=== PATIENT | female | born 1965 | race Caucasian/White ===

== ENCOUNTER 2019-11-04 09:08 | Emergency (ER) | payer OTHER, SELFPAY ==
[2019-11-04 09:27] VITALS: BP 146/89; PULSE 91; RESP 20; TEMP 36.2; O2SAT 99
--- NOTE | 2019-11-04 09:40 | ED.GENADULT ---
HPI - General Adult General Chief complaint: Eye Problems Stated complaint: Eyhe problems Time Seen by Provider: 11/04/19 09:40 Source: patient Mode of arrival: ambulatory Limitations: no limitations History of Present Illness HPI narrative: 54-year-old female patient presents to the [facility] with complaints of right eyelid swelling that started yesterday. Patient states that she put a warm compress on it all night last night but noticed that today the redness and swelling to the eye is gotten worse. Patient states that she typically does wear eye make-up. Patient denies any fevers. Denies any vision changes. Denies any discharge coming from the eye. Related Data Home Medications Medication Instructions Recorded Confirmed No Home Medications 11/04/19 11/04/19 Allergies Allergy/AdvReac Type Severity Reaction Status Date / Time prochlorperazine Allergy Mild Verified 07/05/16 09:22 Review of Systems Review of Systems: Narrative: CONSTITUTIONAL: Denies fever, chills, or sweats. EYES: Denies visual changes, positive right eye upper lid redness and swelling, denies discharge. ENT: Denies rhinorrhea, congestion, sore throat, or otalgia. CARDIOVASCULAR: Denies chest pain, palpitations, or edema. RESPIRATORY: Denies cough or dyspnea. GASTROINTESTINAL: Denies abdominal pain, nausea, vomiting, or diarrhea. GENITOURINARY: Denies dysuria or hematuria. SKIN: Denies rash or itching. MUSCULOSKELETAL: Denies back pain, joint pain, or myalgia. NEUROLOGIC: Denies headache, numbness, or weakness. PSYCHIATRIC: Denies anxiety or depression. PMFSH Social History Social History Gender identity (if verbalized by the patient): Female Comments At the time of my signature I agree with nursing past medical history, surgical, social, and family history. There is no relevant family history pertinent to the presenting complaint. Exam Narrative: Exam Narrative: GENERAL: Well-appearing, well-nourished, and in no acute distress. HEAD: Normocephalic, atraumatic. EYES: PERRLA and EOM intact without limitation or complaint of pain, patient does have swelling and erythema noted to the right upper lid. No warmth, slight tenderness noted on palpation towards the inner canthus, no obvious deformity. No crusting or swelling.no tearing or draining.No photophobia. No nystagmus No FB or lesion on lid eversion. There is a stye noted on lid inversion to your inner canthus Antis on the inner upper lid. Corneas grossly clear, no obvious FB or hyphens/hypopyon. No injection to sclera. Lids and lashes clear. ENT: Nares clear, no rhinorrhea or epistaxis. Mucous membranes moist. NECK: Supple. No lymphadenopathy CHEST: Clear to auscultation. No respiratory distress. HEART: Regular rate and rhythm. No murmur heard. Normal peripheral pulses. ABDOMEN: Soft, nontender, nondistended, normal active bowel sounds. EXTREMITIES: Normal range of motion. No edema. SKIN: Warm, dry, no rash. NEURO: No focal deficits. Alert and oriented x3. Course Vital Signs Vital signs: Vital Signs Temperature 36.2 C L 11/04/19 09:27 Pulse Rate 91 11/04/19 09:27 Respiratory Rate 20 11/04/19 09:27 Blood Pressure 146/89 H 11/04/19 09:27 Pulse Oximetry 99 11/04/19 09:27 Temperature 36.2 C L 11/04/19 09:27 Pulse Rate 91 11/04/19 09:27 Respiratory Rate 20 11/04/19 09:27 Blood Pressure 146/89 H 11/04/19 09:27 Pulse Oximetry 99 11/04/19 09:27 Vital signs reviewed. The patient has been informed that they may have pre-hypertension or Hypertension based on a BP reading in the department. I recommend that the patient call the primary care provider listed on their discharge instructions or a physician of their choice this week to arrange follow up for further evaluation of possible pre-hypertension or Hypertension Medical Decision Making Differential Diagnosis Differential Diagnosis: Differential diagnosi
== END 2019-11-04 09:47 | disposition home or self-care (01) ==
PROVIDERS: Emergency Provider Nurse Practitioner Family
DX: H00.021 Hordeolum internum right upper eyelid (principal)
CPT/HCPCS: 99213; G0463

== ENCOUNTER 2021-03-24 04:41 | Emergency (ER) | payer OTHER, SELFPAY ==
[2021-03-24 04:46] VITALS: BP 175/83; PULSE 107; RESP 17; TEMP 36; O2SAT 100
--- NOTE | 2021-03-24 05:00 | ED.ALLEREA ---
HPI - Allergic Reaction General Chief complaint: Allergic Reaction Stated complaint: Tongue swelling Time Seen by Provider: 03/24/21 04:51 Source: patient and RN notes reviewed Limitations: no limitations History of Present Illness HPI narrative: 55-year-old female presents [facility] for evaluation of tongue swelling that started approximately 30 minutes prior to arrival. Patient states she was asleep when she woke up and felt that the right side of her tongue was swollen. Patient presented to the emergency department for evaluation. 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 Patient denies any change in her voice and denies any difficulty breathing or swallowing. Patient denies any new medications, soaps, detergents, foods. Patient states she has never had this happen before. Patient does not take any medications other than albuterol inhaler. Patient states she did not use her albuterol inhaler prior to going to bed. After further consideration patient states that she did have some itching when she was going to bed the other night and that was after eating shrimp. Patient states that she did have shrimp last night for dinner. Related Data Allergies Allergy/AdvReac Type Severity Reaction Status Date / Time prochlorperazine Allergy Mild Unknown Verified 03/24/21 04:49 Review of Systems Review of Systems: CONSTITUTIONAL: Denies fever, chills, or sweats. EYES: Denies visual changes, redness, or discharge. ENT: Denies difficulty breathing or swallowing but does report right-sided tongue swelling CARDIOVASCULAR: Denies chest pain, palpitations, or edema. RESPIRATORY: Denies cough or dyspnea. GASTROINTESTINAL: Denies abdominal pain, nausea, vomiting, or diarrhea. GENITOURINARY: Denies dysuria or hematuria. SKIN: Denies rash or itching. MUSCULOSKELETAL: Denies back pain, joint pain, or myalgia. NEUROLOGIC: Denies headache, numbness, or weakness. PSYCHIATRIC: Denies anxiety or depression. [facility] Social History Social History (System 09/10/20 @ 15:41 by Francesca Huang) Gender identity (if verbalized by the patient): Female Exam Narrative: APPEARANCE: Well appearing, no pain in distress, well-nourished. HEAD: normocephalic, atraumatic. EYES: PERRLA/EOMI, conjunctivae clear. NOSE: Normal no drainage EARS:TMS clear with good light reflex. THROAT: Pharynx clear, no exudate. Small amount of right-sided tongue swelling. Normal Mallampati. Posterior pharynx is easily visible. No posterior tongue swelling. No change in voice NECK: Supple. No adenopathy, no masses. RESPIRATORY: Airway patent, respirations nonlabored. Clear to auscultation bilaterally, no rales, rhonchi, wheezing. CARDIOVASCULAR: Regular rate and rhythm without murmurs rubs or gallops. ABDOMINAL: Soft, nontender, nondistended, normal bowel sounds MUSCULOSKELETAL: Moves all extremities. Strength/ROM intact, No edema, No calf tenderness. NEURO: Alert. Cranial nerves II through XII intact. Good gait. Good coordination SKIN: Warm, dry. Normal Color PSYCHIATRIC: Normal affect/mood. Course Reevaluation(s) Reevaluation #1: On reexamination patient states that she does feel improved. Patient's tongue is significantly improved. Patient has no visible swelling to her tongue and patient has no change in her speech or lisp. Patient was updated on the plan for treatment including prednisone. Patient was also provided a prescription for EpiPen's. Patient states she is knowledgeable on the use of EpiPen's. Patient was also educated on reasons to return to the [facility] department. All questions and concerns were addressed and patient was comfortable with the plan for discharge and close follow-up. Vital Signs Vital signs: Vital Signs Temperature 96.8 F L 03/24/21 04:46 Pulse Rate 107 H 03/24/21 04:46 Respiratory Rate 17 03/24/21 04:46 Blood Pressure 175/83 H 03/24/21 04:46 Pulse Oximetry 100 03/24/21 04:46
[2021-03-24 05:10] VITALS: BP 148/77; PULSE 97; RESP 16; O2SAT 97
[2021-03-24] MEDS: diphenhydrAMINE HCl INJ 50 MG/ML VIAL IV PUSH (05:12)
[2021-03-24] MEDS: FAMOTIDINE 20 MG/2 ML VIAL IV PUSH (05:14)
[2021-03-24] MEDS: methylPREDNISolone SOD SUCC 125 MG VIAL IV PUSH (05:16)
[2021-03-24] MEDS: EPINEPHrine HCL INJ 1 MG/ML AMPUL 0.3 MG IM (05:18)
[2021-03-24 06:02] VITALS: BP 94/73; PULSE 95; RESP 18; O2SAT 98
[2021-03-24 06:49] VITALS: BP 114/68; PULSE 92; RESP 12; O2SAT 98
== END 2021-03-24 06:50 | disposition home or self-care (01) ==
PROVIDERS: Emergency Provider Emergency Medicine
DX: T78.40XA Allergy, unspecified, initial encounter (principal)
CPT/HCPCS: 96372; 96374; 96375; 99284; J0171; J1200; J2930

== ENCOUNTER 2021-04-03 01:00 | Emergency (ER) | payer OTHER, SELFPAY ==
[2021-04-03 01:04] VITALS: BP 151/86; PULSE 103; RESP 18; TEMP 36.1; O2SAT 98
[2021-04-03 01:32] VITALS: PULSE 99; RESP 18; O2SAT 98
[2021-04-03] MEDS: FAMOTIDINE 20 MG/2 ML VIAL IV PUSH (02:12)
[2021-04-03] MEDS: methylPREDNISolone SOD SUCC 125 MG VIAL IV PUSH (02:19)
--- NOTE | 2021-04-03 03:01 | ED.GENADULT ---
HPI - General Adult General Chief complaint: Allergic Reaction Stated complaint: tongue swelling Time Seen by Provider: 04/03/21 01:33 History of Present Illness HPI narrative: Patient is a 55-year-old female who presents the emergency department with chief complaint of angioedema of tongue. Patient reports that recently she had a allergic reaction was given a prescription for an EpiPen that she was unable to fill it was a prescription for steroids. Patient reports that she completed the steroids about a week ago and this evening noticed that she started having swelling in her tongue on the left side last time it was on the right side of her tongue. Patient denies being on ALEXEY inhibitor's denies prior history of idiopathic angioedema the patient denies fever chills. Related Data Allergies Allergy/AdvReac Type Severity Reaction Status Date / Time prochlorperazine Allergy Mild Unknown Verified 04/03/21 01:36 Review of Systems Review of Systems: A 10 system review of systems was completed on the patient and is negative except for what is stated in the HPI. Nursing and ancillary documentation was reviewed. [facility] Social History Social History Gender identity (if verbalized by the patient): Female Course Vital Signs Vital signs: Vital Signs Temperature 36.1 C L 04/03/21 01:04 Pulse Rate 103 H 04/03/21 01:04 Respiratory Rate 18 04/03/21 01:04 Blood Pressure 151/86 H 04/03/21 01:04 Pulse Oximetry 98 04/03/21 01:04 Temperature 36.1 C L 04/03/21 01:04 Pulse Rate 99 04/03/21 01:32 Respiratory Rate 18 04/03/21 01:32 Blood Pressure 151/86 H 04/03/21 01:04 Pulse Oximetry 98 04/03/21 01:32 Medical Decision Making Vital Signs Vital Signs: Vital Signs Temperature 36.1 C L 04/03/21 01:04 Pulse Rate 103 H 04/03/21 01:04 Respiratory Rate 18 04/03/21 01:04 Blood Pressure 151/86 H 04/03/21 01:04 Pulse Oximetry 98 04/03/21 01:04 Temperature 36.1 C L 04/03/21 01:04 Pulse Rate 99 04/03/21 01:32 Respiratory Rate 18 04/03/21 01:32 Blood Pressure 151/86 H 04/03/21 01:04 Pulse Oximetry 98 04/03/21 01:32 Discharge Plan Discharge Clinical Impression: Allergic reaction Qualifiers: Encounter type: initial encounter Qualified Code(s): T78.40XA - Allergy, unspecified, initial encounter Angioedema Qualifiers: Encounter type: initial encounter Qualified Code(s): T78.3XXA - Angioneurotic edema, initial encounter Patient Disposition: Home, Self-Care Condition: Stable Instructions: Antibiotic Form, General Allergic Reaction (ED) Prescriptions: New epinephrine [EpiPen 2-Del] 0.3 mg/0.3 mL auto-injector 0.3 ml subcut Q5-15M PRN (Reason: anaphylaxis) Qty: 2 RF: 0 prednisone 10 mg tablet 10 mg PO DAILY 14 Days Qty: 38 RF: 0 No Action prednisone 50 mg tablet 50 mg PO DAILY Qty: 5 RF: 0 epinephrine [EpiPen 2-Del] 0.3 mg/0.3 mL auto-injector 0.3 mg IM ONCE Qty: 2 RF: 0 Follow-up/Referrals: PHYSICIAN NOT ON STAFF,NONSTAFF [Primary Care Provider] - Time of Disposition: 03:25
[2021-04-03 03:56] VITALS: BP 123/47; PULSE 80; RESP 16; O2SAT 97
== END 2021-04-03 04:05 | disposition home or self-care (01) ==
PROVIDERS: Emergency Provider Emergency Medicine
DX: T78.3XXA Angioneurotic edema, initial encounter (principal)
CPT/HCPCS: 96374; 96375; 99284; J2930

== ENCOUNTER 2022-10-31 14:23 | Emergency (ER) | payer OTHER, SELFPAY ==
[2022-10-31] VITALS (18 sets, daily range): BP systolic 129–157; BP diastolic 50–81; PULSE 100–115; RESP 12–19; TEMP 36.4; O2SAT 92–100
[2022-10-31] MEDS: FAMOTIDINE 20 MG/2 ML VIAL IV PUSH (15:24)
--- NOTE | 2022-10-31 15:59 | ED.ALLEREA ---
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 The patient states approximately 1 and half hours prior to arrival, she noticed swelling of her tongue. She took her Benadryl, Pepcid, prednisone and used an epinephrine auto injecting pen. She states the swelling at the distal aspect of the tongue began improving but she still feels some swelling at the posterior aspect of the tongue, despite waiting an hour. She denies chest pain, difficulty breathing, difficulty swallowing, vomiting or loss of consciousness Related Data Allergies Allergy/AdvReac Type Severity Reaction Status Date / Time prochlorperazine Allergy Mild Unknown Verified 10/31/22 14:32 Review of Systems Review of Systems: CONSTITUTIONAL: Denies fever, chills, or sweats. EYES: Denies visual changes, redness, or discharge. ENT: Tongue swelling now improving denies rhinorrhea, congestion, or otalgia. CARDIOVASCULAR: Denies chest pain, palpitations, or edema. RESPIRATORY: Denies cough or dyspnea. GASTROINTESTINAL: Denies abdominal pain, nausea, vomiting, or diarrhea. GENITOURINARY: Denies dysuria or hematuria. SKIN: Denies rash or itching. NEUROLOGIC: Denies headache, numbness, dizziness, or weakness. PSYCHIATRIC: Denies anxiety or depression. PMFSH Past Medical History Medical History (Updated 10/31/22 @ 16:02 by Jb Manriquez MD) No significant past medical history Surgical History Surgical History (Updated 10/31/22 @ 16:01 by Jb Manriquez MD) No significant past surgical history Social History Social History (Updated 10/31/22 @ 16:02 by Jb Manriquez MD) Smoking status: Never smoker Alcohol intake: never Substance use: never Gender identity (if verbalized by the patient): Female Exam Narrative: GENERAL: Well-developed, well-nourished, and in no acute distress. HEAD: Normocephalic, atraumatic. EYES: PERRLA and EOMI. ENT: Nares clear, no rhinorrhea or epistaxis. Mucous membranes moist. Oropharynx without tonsillar hypertrophy exudate or other lesions. No obvious swelling of the tongue. No noted drooling. NECK: Supple. No stridor CHEST: Clear to auscultation. No respiratory distress. No wheezes rales or rhonchi HEART: Regular rate and rhythm. No murmur heard. Normal peripheral pulses. ABDOMEN: Soft, nontender, nondistended, normal active bowel sounds. EXTREMITIES: Normal range of motion. No edema. SKIN: Warm, dry, no rash. NEURO: Alert and oriented x3. Moving all 4 limbs purposefully. PSYCH: Normal mood and affect. Course Course Emergency Course: 17:22 -after observation in the emergency department, the patient states her swelling has resolved. She feels back to normal. Will discharge with a course of steroids and recommendation to follow-up for continued evaluation. Discussed return and emergency precautions including signs/symptoms of anaphylaxis and airway compromise. The patient voiced understanding and is comfortable with the plan. All questions answered to her satisfaction. Vital Signs Vital signs: Vital Signs Temperature 97.6 F 10/31/22 14:25 Pulse Rate 112 H 10/31/22 14:25 Respiratory Rate 18 10/31/22 14:25 Blood Pressure 154/81 H 10/31/22 14:25 Pulse Oximetry 99 10/31/22 14:25 Oxygen Delivery Room Air 10/31/22 14:25 Temperature 97.6 F 10/31/22 14:25 Pulse Rate 109 H 10/31/22 17:00 Respiratory Rate 16 10/31/22 17:00 Blood Pressure 129/77 10/31/22 15:32 Pulse Oximetry 97 10/31/22 17:00 Oxygen Delivery Room Air 10/31/22 14:25 MDM - Allergic Reaction MDM Narrative Medical decision making narrative: Plan: Antihistamines, observation Differential D
== END 2022-10-31 17:29 | disposition home or self-care (01) ==
PROVIDERS: Emergency Provider Preventive Medicine Aerospace Medicine
DX: K14.8 Other diseases of tongue (principal)
CPT/HCPCS: 96374; 99283

== ENCOUNTER 2023-09-20 10:45 | Emergency (ER) | payer OTHER, SELFPAY ==
[2023-09-20 10:46] VITALS: BP 158/75; PULSE 107; RESP 14; TEMP 36.6; O2SAT 98
[2023-09-20 11:26] LABS: Basophils Percent Auto 0.4 % (0.2-1.2); Eosinophils Percent Auto 0.3 % (0-4.4); Hematocrit 41.2 % (37.0-47.0); Hemoglobin 13.7 g/dL (12.0-15.0); Immature Granulocyte Absolute 0.02 K/mm3 (0.00-0.031); Immature Granulocyte Percent A 0.2 % (0-0.5); Lymphocytes Absolute Auto 1.96 K/mm3 (0.9-3.2); Lymphocytes Percent Auto 21.2 % (18.3-44.2); Mean Corpuscular HGB Conc 33.3 g/dl (32-36); Mean Corpuscular Hemoglobin 31.3 pg (26-34); Mean Corpuscular Volume 94.1 fl (80-100); Mean Platelet Volume 10.7 fl (7.4-10.4); Monocytes Absolute Auto 0.5 K/mm3 (0.1-0.6); Monocytes Percent Auto 5.5 % (2.6-8.5); Neutrophils Absolute Auto 6.7 K/mm3 (1.3-6.7); Neutrophils Percent Auto 72.4 % (45.5-73.1); Platelet Count Result 309 k/mm3 (150-375); Red Blood Count 4.38 M/mm3 (4.2-5.4); Red Cell Distribution Width 12.4 % (11.5-14.5); White Blood Count 9.2 K/mm3 (4.5-10.0)
[2023-09-20 11:37] LABS: Alanine Aminotransferase 21 U/L (6-35); Albumin Level 4.9 g/dL (3.5-5.1); Alkaline Phosphatase 96 U/L (38-126); Anion Gap 10 mmol/L (4-12); Aspartate Amino Transferase 21 U/L (14-36); Bilirubin,Total 0.7 mg/dL (0.2-1.3); Blood Urea Nitrogen 16 mg/dL (7-17); Calcium 9.6 mg/dL (8.4-10.2); Carbon Dioxide 27 mmol/L (22-30); Chloride 103 mmol/L (98-107); Estimated CRCL calculation 121 ml/min; Estimated Glomerular Filt Rate > 60; Glucose 125 mg/dL (65-110); Lipase 78 U/L (23-300); Potassium 3.8 mmol/L (3.4-5.0); Sodium 140 mmol/L (137-145)
[2023-09-20 12:58] LABS: Appearance Urine Clear (Clear); Bacteria Urine None Seen /hpf; Bilirubin Urine Negative (Negative); Blood Urine Negative (Negative); Color Urine Yellow (Yellow); Glucose Urine UA Negative (Negative); Ketones Urine Negative (Negative); Leukocyte Esterase Ur 1+ LEU/UL (Negative); Need Manual Microscopic Reviewed; Nitrate Urine Negative (Negative); Non Pathogenic Casts 0-2; Protein Urine Negative (Negative); RBC Urine 0-2 /hpf (0-2); Specific Grav Ur 1.016 (1.001-1.035); Squamous Epithelial Cell Urine Occasional /hpf (Few); Urobilinogen Urine 0.2 mg/dL (<2.0); WBC Urine 0-5 /hpf (0-3)
[2023-09-20 13:01] LABS: Add Urine Microscopic? YES
[2023-09-20] MEDS: SODIUM CHLORIDE 0.9% IV 2,000 ML 999 ML IV CONT (13:22)
[2023-09-20 14:15] VITALS: BP 144/99; PULSE 89; RESP 17; O2SAT 100
--- NOTE | 2023-09-20 15:00 | ED.GENADULT ---
HPI - General Adult General Chief complaint: Nausea/Vomiting/Diarrhea Stated complaint: diarrhea weight loss Time Seen by Provider: 09/20/23 12:06 History of Present Illness HPI narrative: This is a 57-year-old female presenting with 2 days of nonbloody diarrhea. Diarrhea started yesterday morning. She had 5 days episodes throughout the day. It is not associated with fevers chills chest pain for the breathing or abdominal pain. Patient has able to tolerate water and has had some nausea but no vomiting. Patient did have a knee replacement surgery in early August. no pain/swelling/redness at the surgical site. Related Data Allergies Allergy/AdvReac Type Severity Reaction Status Date / Time prochlorperazine Allergy Mild Unknown Verified 10/31/22 14:32 [facility] Past Medical History Medical History No significant past medical history Surgical History Surgical History No significant past surgical history Social History Social History Smoking status: Never smoker Alcohol intake: never Substance use: never Gender identity (if verbalized by the patient): Female Exam Narrative: APPEARANCE: No apparent distress. Head: atraumatic. EYES: EOMI, NOSE: Atraumatic NECK: Trachea midline RESPIRATORY: No increased rate of breathing CARDIOVASCULAR: RRR, ABDOMINAL: Non-distended , soft nontender no guarding rebound MUSCULOSKELETAl: No obvious deformities NEURO: Alert. Moving 4/4 extremities SKIN:: Warm, dry. Normal color PSYCHIATRIC: Normal affect Course Vital Signs Vital signs: Vital Signs Temperature 97.9 F 09/20/23 10:46 Pulse Rate 107 H 09/20/23 10:46 Respiratory Rate 14 09/20/23 10:46 Blood Pressure 158/75 H 09/20/23 10:46 Pulse Oximetry 98 09/20/23 10:46 Oxygen Delivery Room Air 09/20/23 10:46 Temperature 97.9 F 09/20/23 10:46 Pulse Rate 89 09/20/23 14:15 Respiratory Rate 17 09/20/23 14:15 Blood Pressure 144/99 H 09/20/23 14:15 Pulse Oximetry 100 09/20/23 14:15 Oxygen Delivery Room Air 09/20/23 10:46 Medical Decision Making MDM Narrative Medical decision making narrative: -Course: 57-year-old female presenting with 2 days of diarrhea. slightly tachycardic upon arrival. Benign abdominal exam. Patient given 3 L of fluid resuscitation with normalization vital signs. Laboratory studies reviewed in all within normal limits. Re-evaluation patient is feeling much better. She has tolerated p.o.. Patient will be discharged with primary care follow-up and given return precautions. -DDX includes but is not limited to: Gastroenteritis, viral syndrome, colitis, dehydration -Co-morbidities complicating care: 3 weeks post-op from knee replacement -Independent interpretation of studies: labs reviewed -Interventions: 3 L normal saline -Shared decision making / Disposition: discharged Vital Signs Vital Signs: Vital Signs Temperature 97.9 F 09/20/23 10:46 Pulse Rate 107 H 09/20/23 10:46 Respiratory Rate 14 09/20/23 10:46 Blood Pressure 158/75 H 09/20/23 10:46 Pulse Oximetry 98 09/20/23 10:46 Oxygen Delivery Room Air 09/20/23 10:46 Temperature 97.9 F 09/20/23 10:46 Pulse Rate 89 09/20/23 14:15 Respiratory Rate 17 09/20/23 14:15 Blood Pressure 144/99 H 09/20/23 14:15 Pulse Oximetry 100 09/20/23 14:15 Oxygen Delivery Room Air 09/20/23 10:46 Lab Data 09/20/23 11:20 09/20/23 11:20 Labs: Lab Results 09/20/23 09/20/23 Range/Units 11:20 12:32 WBC 9.2 (4.5-10.0) K/mm3 RBC 4.38 (4.2-5.4) M/mm3 Hgb 13.7 (12.0-15.0) g/dL Hct 41.2 (37.0-47.0) % MCV 94.1 (80-100) fl MCH 31.3 (26-34) pg MCHC 33.3 (32-36) g/dl RDW 12.4 (11.5-14.5) % Plt Count 309 (150-375) k/mm3 MPV 10.7 H (7.4-10.4) fl
== END 2023-09-20 15:20 | disposition home or self-care (01) ==
PROVIDERS: Emergency Provider Emergency Medicine
DX: R19.7 Diarrhea, unspecified (principal)
CPT/HCPCS: 36415; 80053; 81001; 83690; 85025; 96360; 96361; 99283; J7030

== ENCOUNTER 2024-08-01 02:32 | Emergency (ER) | payer OTHER, SELFPAY ==
--- OUTSIDE RECORDS SUMMARY | 2024-08-01 02:35 | XMS_ITS | Continuity of Care Document ---
Author Organization [employer] [place] Address [address] [place] [address] [address] [place] [address] Phone Care Team Providers Care Senior Payroll Administrator Name Role Phone Maynor PT,MPT,ATC, Hector Unavailable Unavai lable Procedures Procedure Date Therapeutic Activities Neuromuscular Re-Ed Therapeutic Exercise Therapeutic Activities Neuromuscular Re-Ed Therapeutic Exercise Therapeutic Activities Neuromuscular Re-Ed Therapeutic Exercise Therapeutic Activities Neuromuscular Re-Ed Therapeutic Exercise Therapeutic Activities Neuromuscular Re-Ed Therapeutic Exercise Therapeutic Activities Neuromuscular Re-Ed Therapeutic Exercise Therapeutic Activities Neuromuscular Re-Ed Therapeutic Exercise Therapeutic Activities Neuromuscular Re-Ed Therapeutic Exercise Therapeutic Activities Neuromuscular Re-Ed Therapeutic Exercise Therapeutic Activities Neuromuscular Re-Ed Therapeutic Exercise Progress Note Therapeutic Activities Neuromuscular Re-Ed Therapeutic Exercise Therapeutic Activities Neuromuscular Re-Ed Therapeutic Exercise Therapeutic Activities Neuromuscular Re-Ed Therapeutic Exercise Therapeutic Activities Neuromuscular Re-Ed Therapeutic Exercise Therapeutic Activities Neuromuscular Re-Ed Therapeutic Exercise Therapeutic Activities Neuromuscular Re-Ed Therapeutic Exercise Therapeutic Activities Neuromuscular Re-Ed Therapeutic Exercise Therapeutic Activities Neuromuscular Re-Ed Therapeutic Exercise Therapeutic Activities Neuromuscular Re-Ed Therapeutic Exercise Progress Note Therapeutic Activities Neuromuscular Re-Ed Therapeutic Exercise Therapeutic Activities Neuromuscular Re-Ed Therapeutic Exercise Therapeutic Activities Neuromuscular Re-Ed Therapeutic Exercise Therapeutic Activities Neuromuscular Re-Ed Therapeutic Exercise Therapeutic Activities Neuromuscular Re-Ed Therapeutic Exercise Therapeutic Activities Neuromuscular Re-Ed Therapeutic Exercise Therapeutic Activities Neuromuscular Re-Ed Therapeutic Exercise Therapeutic Activities Therapeutic Exercise Therapeutic Activities Therapeutic Exercise Therapeutic Activities Therapeutic Exercise PT Evaluation Moderate Complexity Therapeutic Activities Therapeutic Exercise Therapeutic Exercise Manual Therapy Therapeutic Exercise Neuromuscular Re-Ed Manual Therapy Therapeutic Exercise Neuromuscular Re-Ed Manual Therapy Therapeutic Exercise Neuromuscular Re-Ed Manual Therapy Therapeutic Exercise Neuromuscular Re-Ed Manual Therapy PT Evaluation Moderate Complexity Therapeutic Exercise Neuromuscular Re-Ed Manual Therapy Advance Directives Directive Yes / No Effective Date File Name No Information Encounters Encounter Description Practice Location Reason(s) For Visit Diagnoses Date Provider Providers Copied on Encounter [facility], [address] [address], [place], [place], [id number], tel:[phone] [place] No Information 5 [place], [place]. [facility] [facility] [address], [place], [place], [id number], tel:[phone] [place] No Information 4 [place]. . Referring Provider: Flor Dc [facility] [address], [facility]. tel:[phone] [facility] [address] [address], [place], [place], [id number], tel:[phone] [place] No Information 4 [place]. . Referring Provider: Flor Dc [facility] [address], [address]. tel:[phone] [facility] [address] [address], [place], [place], [id number], tel:[phone] [place] No Information 4 [place]. . Referring Provider: Flor Dc [facility] [address], [address]. tel:[phone] [facility] [address] [facility] [address], [place], [place], [id number], [place] tel:[phone] [place] No Information Oct- 4-202 4 [place]. . Referring Provider: Guillaume Ambrocio VivianaKirsty [facility] [address], [address]. tel:[phone] [place] [address], [address] [place] [address] [address], [place], [place], [id number], [place] tel:[phone] [place] No Information Sep-3 0-202 4 [place]. . Referring Provider: Guillaume Ambrocio, [address] [place] [address] Medical Office Building [address], [address]. tel:[phone] [place] [address], [address] [place] [address], [place], [place], [id number], tel:[phone] [place] No Information Sep-2 3-202 4 [place], [place]. Referring Provider: Flor Dc [facility] [address], [address]. tel:[phone] [place] [address], [address] [place] [address], [place], [place], [id number], [place] tel:[phone] [place] No Information Sep-1 6-202 4 [place]. . Referring Provider: [facility] [address], [address]. tel:[phone] [place] [address], [address] [facility] [address], [place], [place], [id number], [place] tel:[phone] [place] No Information Sep-0 9-202 4 [place]. . Referring Provider: Guillaume [facility] [address], [address]. tel:[phone] [place] [address], [address] [place], [place] [address], [place], [place], [id number], [place] tel:[phone] [place] No Information Sep-0 3-202 4 [place]. . Referring Provider: Guillaume Ambrocio VivianaKirsty [facility] [address], [address]. tel:[phone] [place] [address], [address] [address], [place], [place], [id number], tel:[phone] [place] No Information 4 [place]. . Referring Provider: Flor Dc [facility] [address], [address]. tel:[phone] [place] [address], [address] [address], [place], [place], [id number], [place] tel:[phone] [place] No Information 4 [place]. . Referring Provider: Flor Dc [facility] [address], [address]. tel:[phone] [place] [address], [address] [address], [place], [place], [id number], [place] tel:[phone] [place] No Information 4 [place]. . Referring Provider: Flor Dc [facility] [address], [address]. tel:[phone] [place] [address], [address] [address], [place], [place], [id number], [place] tel:[phone] [place] No Information 4 [place]. . Referring Provider: Flor Dc [facility] [address], [address]. tel:[phone] [place] [address], [address] [address], [place], [place], [id number], [place] tel:[phone] [place] No Information 4 [place]. . Referring Provider: Flor Dc [facility] [address], [address]. tel:[phone] [place] [address], [address] [facility] [address], [place], [place], [address], [place] tel:[phone] [place] No Information 1 3-202 4 [place]. . Referring Provider: Guillaume Ambrocio, Flor [facility] [address], [address]. tel:[phone] [place] [address], [address] [facility] [address], [place], [place], [id number], [place] tel:[phone] [place] No Information 0 8 4 [place]. . Referring Provider: Flor Dc [facility] [address], [address]. tel:[phone] [place] [address], [address] [place] [address], [place], [place], [id number], [place] tel:[phone] [place] No Information 0 6202 4 [place] Donald. . Referring Provider: Flor Dc [facility] [address], [address]. tel:[phone] [place] [address], [address] [address], [place], [place], [id number], [place] tel:[phone] [place] No Information 0 1 4 [place]. . Referring Provider: Flor Dc [facility] [address], [address]. tel:[phone] [place] [address], [address] [facility] [address], [place], [place], [address], [place] tel:[phone] [place] No Information 3 0-202 4 [place]. . Referring Provider: Flor Dc [facility] [address], [address]. tel:[phone] [place] [address], [address] [facility] [address], [place], [place], [id number], [place] tel:[phone] [place] No Information 4 [place], [place]. Referring Provider: Flor Dc [facility] [address], [address]. tel:[phone] [place] [address], [address] [facility] [address], [place], [id number], [place] tel:[phone] [place] No Information 4 [place]. . Referring Provider: Flor Dc [facility] [address], [address]. tel:[phone] [place] [address], [address] [address], [place], [place], [id number], [place] tel:[phone] [place] No Information 4 [place], [place]. Referring Provider: Flor Dc [facility] [address], [address]. tel:[phone] [place] [address], [address] [address], [place], [address], [place] tel:[phone] [place] No Information 4 [place]. . Referring Provider: Flor Dc [facility] [address], [address]. tel:[phone] [facility], [address] [facility] [address], [place], [address], [place] tel:[phone] [place] No Information 4 [place]. . Referring Provider: Flor Dc [facility] [address], [address]. tel:[phone] [facility], [address] [facility] [address], [place], [place], [address], [place] tel:[phone] [place] No Information 4 [place]. . Referring Provider: Guillaume Ambrocio Flor [facility] [address], [address]. tel:[phone] [place] [address], [address] [place] [address], [place], [place], [id number], tel:[phone] [place] No Information 0 5- 4 [place]. . Referring Provider: Guillaume Ambrocio Flor [facility] [address], [address]. tel:[phone] [place] [address], [address] [place] [address], [place], [place], [id number], [place] tel:[phone] [place] No Information 0 3- 4 [place]. . Referring Provider: Guillaume Ambrocio Flor [facility] [address], [address]. tel:[phone] [place] [address], [address] [place] [address], [place], [place], [id number], [place] tel:[phone] [place] No Information 4 Taran Enriquez. . Referring Provider: Guillaume Ambrocio Flor [facility] [address], [address]. tel:[phone] [place] [address], [address] [place] [address], [place], [place], [address], [place] tel:[phone] [place] No Information 4 Taran Enriquez. . Referring Provider: Guillaume Ambrocio [address] [facility] [address], [address]. tel:[phone] [place] [address], [address] [place] [address], [place], [place], [id number], [place] tel:[phone] [place] No Information 4 Taran Enriquez. . Referring Provider: Guillaume Ambrocio VivianaKirsty [facility] [address], [address]. tel:[phone] [facility], [address], [place], [address], [place] tel:[phone] [place] No Information Dec-1 3-201 7 [place], [place]. Referring Provider: Estela Villasenor, [address] [place] [address] [address], [place], [address]. tel:[phone] [facility], [address], [place], [place], [address], [place] tel:[phone] [place] No Information Oct-0 9-201 7 [place]. Referring Provider: Estela Villasenor, [address] [place] [address] [address], [place], [address]. tel:[phone] [facility], [address] [facility] [address], [place], [place], [id number], [place] tel:[phone] [place] No Information Dec-0 2-201 7 [place], [place] Referring Provider: Estela Villasenor, [address] [place] [address] [address], [place], [address]. tel:[phone] [facility] [facility], [place], [place], [address], [place] tel:[phone] [place] No Information Sep-2 9- 7 [place] Referring Provider: Estela Villasenor, [address] [place] [address] [address], [place], [address]. tel:[phone] [facility], [address], [place], [place], [address], [place] tel:[phone] [place] No Information Sep-2 0-201 7 [place]. Referring Provider: Estela Villasenor, [address] [place] [address] [address], [place], [address]. tel:[phone] [facility], [address] [place] [address] [address], [place], [place], [id number], [place] tel:[phone] Matt Pain in left shoulder Nov- 7 [place], [place]. Referring Provider: Estela Villasenor, [address] [facility] [address], [place], [address]. tel:[phone] Family History Family Member Type Diagnosis Age At Onset No Information Payers Payer name Insurance type Covered green party ID Migel mobley(hoa [facility] CI [id number] Social History Type Description Quantity Date Captured Comments Sex Female Smoking Status No Information Chief Complaint And Reason For Visit No Information Reason For Referral Reason For Referral No Information History Of Present Illness Encounter Date Complaint History Of Prese nt Illness No Information Functional Status Date Functional Assessmen t No Information Instructions Date Instruction Additional Infor mation No Information Assessments Type Assessment Date No Information Patient Care Teams Name Effective Dates (start - stop) Status Members No Information
--- OUTSIDE RECORDS SUMMARY | 2024-08-01 02:35 | XMS_ITS | Encounter Summary ---
Author Organization [facility] Address [address] [place] [address] Phone Care Team Providers Care Quality Control Tech Raw Materials Name Role Phone Estela Villasenor MD Primary Care Provider Encounter Details Date Type Department Care Team (Late st Contact Info) Description 08/20/2017 Orders Only [facility] ProviderMoncho [facility] [place] [address] Social History Tobacco Use Types Packs/Day Years Used Date Smoking Tobacco: Never Smokeless Tobacco: Never Comments Unknown Sex and Gender Information Value Date Recorded Sex Assigned at Not on file Legal 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 us Historical Provider MD LAB CYTOLOGY ORDERABLES F inal Result * DISCHARGE LABORATORY CUMULATIVE REPORT (08/20/2017 12:00 AM CDT) Narrative 08/20/2017 12:00 AM CDT Ordered by an unspecified provider. Historical Provider LAB BLOOD ORDERABLES Carmen l Result documented in this encounter Visit Diagnoses Not on filedocumented in this encounter Additional Health Concerns Infection Onset Date Last Indicated Resolved Time COVID: Suspected 09/15/2019 09/15/2019 09/16/2019 11:30 PM CDT Respiratory Infection (PO), contact + droplet Comment:Automatically added due to negative COVID-19 result. 09/16/2019 09/16/2019 09/30/2019 3:0 5 AM CDT COVID: Suspected 04/18/2021 04/18/2021 04/19/2021 12:12 AM TAX FORM PREPARER COVID: Suspected 05/02/2021 05/02/2021 05/03/2021 3:05 AM TAX FORM PREPARER COVID: Suspected 05/02/2021 05/02/2021 05/03/2021 6:25 AM TAX FORM PREPARER COVID: Suspected 09/03/2021 09/03/2021 09/03/2021 3:37 PM CDT COVID19 09/03/2021 09/03/2021 09/13/2021 3:05 AM CDT COVID: Recovered Comment:Added based on recent COVID infection. 09/13/2021 09/13/2021 01/11/2022 3:05 AM C DT COVID: Suspected 02/14/2024 02/14/2024 02/14/2024 4:40 PM TAX FORM PREPARER documented as of this encounter Care Teams Quality Control Tech Raw Materials Relationship Specialty Start Date End Date Estela Villasenor MD PCP - General Internal Medicine 10/22/16 documented as of this encounter
--- OUTSIDE RECORDS SUMMARY | 2024-08-01 02:35 | XMS_ITS | Referral Summary ---
Author Organization [facility] Address [address] [place] [address] Phone Care Team Providers Care Freight Car Repairer Name Role Phone Estela Villasenor MD Primary Care Provider Encounters Date Type Department Care Team Description 05/09/2024 Results Follow-Up [facility] [address] [place] [address] Estela Villasenor MD from Last 3 Months Allergies Active Allergy Reactions Criticality Noted Date Comments Prochlorperazine Dystonia High 11/26/2016 Medications EPINEPHrine 0.3 mg/0.3 mL auto-injection syringeIndicati ons:Angioedema, subsequent encounter Inject 0.3 mL (0.3 mg total) into the muscle as instructed as needed for anaphylaxis 1 each 3 Active diphenhydrAMINE 25 mg capsuleIndicati ons:angioedema Take 1-2 tablet/capsule (25-50 mg total) by mouth every 6 (six) hours as needed for other (angioedema) Active famotidine (PEPCID) 40 mg tabletIndicatio ns:angioedema Take 1 tablet (40 mg total) by mouth as needed (angioedema) Active LORazepam (ATIVAN) 0.5 mg tabletIndicatio ns:anxiety Take 1 tablet (0.5 mg total) by mouth as needed for anxiety 30 tablet 1 4 Active albuterol HFA (PROVENTIL HFA,VENTOLIN HFA,PROAIR HFA) 90 mcg/actuation inhaler Inhale 2 puffs every 6 (six) hours as needed for wheezing 1 each 11 4 Active guaiFENesin-cod eine (GUAITUSS AC) liquid 100-10 mg/5 mL Take 5-10 mL by mouth every 4 (four) hours as needed for cough 237 mL 5 Active predniSONE (DELTASONE) 10 mg tablet Take 2 tablets (20 mg) by mouth daily as needed (angioedema for 5 days) 20 tablet 3 5 Active Active Problems Problem Noted Date Diagnosed Date Primary osteoarthritis of left knee 07/20/2023 Endometrial thickening on ultrasound 11/22/2022 Endometrial polyp 11/22/2022 Thickened endometrium 11/20/2022 Class 2 severe obesity due t o excess calories with serious comorbidity and body mass index (BMI) of 38.0 to 38.9 in adult 04/01/2022 Screening for colon cancer 04/24/2020 Overview (04/24/2020): Added automatically from request for surgery [id number] Chronic low back pain 11/26/2016 Hyperlipidemia 11/26/2016 Obesity (BMI 35.0-39.9 without comorbidity) 09/2016 Lumbar radiculopathy 12/29/2012 Presbyopia 05/01/2010 Snoring 01/03/2010 Acute bronchitis Mild persistent asthma Immunizations Immunization Administration Dates Next Due Influenza, Quadrivalent, Spl it, Preservative Free, Intramuscular 12/24/2022,01/15/2022 Influenza, Trivalent, Preser vative Free, Intramuscular 12/31/2023 Influenza, Unspecified 01/04/2024,2021,12/20/2020,12/20,12/31/2017,12/21/2016 Pfizer SARS-CoV-2 Monovalent Vaccination (12+ Yrs) PURPLE 04/02/2020,03/12/2020 Tdap 05/31/2018 Social History Tobacco Use Types Packs/Day Years Used Date Smoking Tobacco: Never Smokeless Tobacco: Never Alcohol Use Standard Drinks/Week Comments Never 0 (1 standard drink = 0.6 oz pur e alcohol) AUDIT-C Answer Date Recorded Q1: How often do you have a drink containing alcohol? Never 08/09/2023 Q2: How many drinks containi ng alcohol do you have on a typical day when you are drinking? Patient does not drink Q3: How often do you have si x or more drinks on one occasion? Never 08/09/2023 PHQ-2 Answer Date Recorded PHQ-2 Total Score (If total score is 3 or more points, staff should administer the PHQ-9) 0 04/17/2024 Personal Safety Answer Date Recorded Have you ever been in or are you currently in a harmful physical or emotional relationship or is someone making you feel afraid or unsafe? 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 on file Not o n file Not on file Last Filed Vital Signs Vital Sign Reading Time Taken Comments Blood Pressure 124/76 04/17/2024 10:56 AM STUDENT UNION CONSULTANT Pulse 91 04/17/2024 10:56 AM STUDENT UNION CONSULTANT Temperature 36.4 C (97.6 F) 04/17/2024 10:56 AM STUDENT UNION CONSULTANT Respiratory Rate 20 04/17/2024 10:56 AM STUDENT UNION CONSULTANT Oxygen Saturation 97% 04/17/2024 10:56 AM STUDENT UNION CONSULTANT Inhaled Oxygen Concentration - - Weight 110.7 kg (244 lb) 04/17/2024 10:56 AM STUDENT UNION CONSULTANT Height 165.1 cm (5' 5 ) 04/17/2024 10:56 AM STUDENT UNION CONSULTANT Body Mass Index 40.6 04/17/2024 10:56 AM STUDENT UNION CONSULTANT Plan of Treatment Not on file Medical Devices Implanted Type Area B2B Sales Executive Device Identifier Shelf Expiration Date Model / Serial / Lot [employer] Simplex P Full Dose Radiopaque Preblend Cement Bone Tobramycin 6197-9-010 - [id number] Implanted:Qty: 1 on 08/30/2023 at [facility] Left: Knee [employer] 11/19/2024 6197-9-010 / / [id number] [employer] Simplex P Full Dose Radiopaque Preblend Cement Bone Tobramycin 6197-9-010 - [id number] Implanted:Qty: 1 on 08/30/2023 at [facility] Left: Knee [employer] 11/19/2024 6197-9-010 / / [id number] [employer] Simplex P Full Dose Radiopaque Preblend Cement Bone Tobramycin 6197-9-010 - [id number] Implanted:Qty: 1 on 08/30/2023 at [facility] Left: Knee [employer] 11/19/2024 6197-9-010 / / [id number] [employer] Attune Cruciate Retain Cementless Knee Left 6 Narrow Component [id number] - [id number] Implanted:Qty: 1 on 08/30/2023 at [facility] Left: Knee [employer] 06/19/2033 [id number] / / [id number] [employer] Attune S+ Cement Fix Bearing Knee 4 Baseplate Tibial [id number] - [id number] Implanted:Qty: 1 on 08/30/2023 at [facility] Left: Knee [employer] 06/19/2033 [id number] / / [id number] [employer] Insert Tibial Knee Fixed Lm Posterior Stabilized Attune 5mm Size 6 Polyethylene [id number] - [id number] Implanted:Qty: 1 on 08/30/2023 at [facility] Left: Knee [employer] 05/20/2031 [id number] / / [id number] Procedures Procedure Name Priority Date/Time Associated Diagnosis Comments HIGH RISK HPV DNA DETECTION WITH GENOTYPING Routine 10/08/2022 7:52 AM CDT Screening for cervical cancer SCREENING MAMMOGRAM BILATERAL W KELBY Schedule Routine, Read Routine (OP Routine) 05/22/2022 7:40 AM STUDENT UNION CONSULTANT Screening mammogram, encounter for COLONOSCOPY 05/13/2020 10:20 AM STUDENT UNION CONSULTANT HEPATITIS C ANTIBODY Routine 05/31/2018 9:21 AM CDT Encounter for hepatitis C screening test for low risk patient from Last 3 Months or Most Recently Relevant to Health Maintenance Results * High Risk HPV DNA Detection with Genotyping (Molecular component) (10/08/2022 7:52 AM CDT) HPV HR 16 Not Detected Not Detected [facility] Comment:Collection date/time has been modified to: 07:52:00. Previous collection date/time: 07:52:00. HPV HR 18 Not Detected Not Detected [facility] Comment:Collection date/time has been modified to: 07:52:00. Previous collection date/time: 07:52:00. HPV HR Non 16/18 Not Detected Not Detected [facility] Comment: Collection date/time has been modified to: 07:52:00. Previous collection date/time: 07:52:00. Interpretive Data Nucleic acid amplification for detection of high-risk Human Papilloma virus (HPV) is performed by the Violeta Trace 6800 HPV test. This assay specifically detects HPV-16 and HPV-18 genotypes. The following HPV genotypes are detected as high-risk HPV: HPV-31, 33, 35, ,39, 45, 51, 52, 56, 58, 59, 66, and 68. This assay has been approved by the [place] Food and Drug Administration for detection of HPV in cervical specimens collected by a physician using an endocervical brush/spatula or cervical broom and placed in the ThinPrep Pap Test PreservCyt collection containers. The performance characteristics of this test have been verified by the [facility] Molecular Infectious Disease laboratory. Correlate with separately reported cytology results, as applicable. Interpretive data last revised 22 Endocervical 10/08/2022 7:52 AM CDT 10/09/2022 4:49 PM CDT Narrative [facility] - 10/12/2022 11:18 AM CDT Clinical history and diagnosis->Screening Number of vials->1 Testing type->Screening Last menstrual period (date if known)->age 38 Menstrual status->Postmenopausal Sunita Bonilla PEDIATRIC IMMUNOLOGIST LAB BODY FLUIDS AND STO OLS ORDERABLES Edited Result - Final [facility] [place] [address] * Screening Mammogram Bilateral W Kelby (05/22/2022 7:40 AM STUDENT UNION CONSULTANT) Anatomical Region Laterality Modality Breast Bilateral Mammography Narrative 05/25/2022 2:23 PM STUDENT UNION CONSULTANT Mammogram Technique: Bilateral Digital Breast Tomosynthesis, Bilateral C-view 2D Screening mammogram. Views obtained: bilateral craniocaudal and bilateral mediolateral oblique. Computer Aided Detection was performed. Mammogram Findings: The present examination has been compared to prior imaging studies performed at [facility] on 12/14/2012, 08/19/2017 and 01/02/2020. There are scattered areas of fibroglandular density. There is no suspicious abnormality in either breast. Impression: There is no mammographic evidence of malignancy. Annual screening mammography is recommended. OVERALL FINAL ASSESSMENT: BI-RADS CATEGORY 1: Negative. Procedure Note Bri Cohen MD - 05/25/2022 Mammogram Technique: Bilateral Digital Breast Tomosynthesis, Bilateral C-view 2D Screening mammogram. Views obtained: bilateral craniocaudal and bilateral mediolateral oblique. Computer Aided Detection was performed. Mammogram Findings: The present examination has been compared to prior imaging studies performed at [facility] on 12/14/2012, 08/19/2017 and 01/02/2020. There are scattered areas of fibroglandular density. There is no suspicious abnormality in either breast. Impression: There is no mammographic evidence of malignancy. Annual screening mammography is recommended. OVERALL FINAL ASSESSMENT: BI-RADS CATEGORY 1: Negative. us Self Screening Mammogram IMG MAMMO PROCEDURES Fi nal Result * COLONOSCOPY (05/13/2020 10:20 AM STUDENT UNION CONSULTANT) Anatomical Region Laterality Modality Other Narrative Procedure Note Zay Schulz MD - 05/13/2020 10:20 AM CST ENDOSCOPY LAB Patient Name: Drea Willis Procedure Date: 05/13/2020 10:20 AM Date of : 1965 Admit Type: Outpatient Age: 54 Gender: Female Attending MD: Zay Schulz M.D. Room: [facility] ENDOSCOPY ROOM 04 Note Status: Finalized Procedure: Colonoscopy Indications: Screening for colorectal malignant neoplasm, Thisis the patient's first colonoscopy - denies anysymptoms or family history of colon cancer Providers: Zay Schulz M.D. Referring MD: Estela Villasenor M.D. Medicines: Monitored Anesthesia Care Complications: No immediate complications. Estimated Blood Loss: Estimated blood loss: none. Procedure: Pre-Anesthesia Assessment: - The risks and benefits of the procedure and the sedation options and risks were discussed with the patient. All questions were answered and informed consent was obtained. - Immediately prior to administration ofmedications, the patient was re-assessed for adequacy to receive sedatives. - Assessment per Anesthesia The benefits, risks and alternatives of theprocedure and sedation were discussed and informed consentwas obtained. All questions were answered. Please referto the signed informed consent document in the medical record. The scope was passed under direct vision.The [id number] was introduced through the anusand advanced to the terminal ileum. The colonoscopy was performed without difficulty. The patient tolerated the procedure well. The quality of the bowel preparation was adequate. The quality of the bowel preparation was evaluated using the BBPS (BostonBowel Preparation Scale) with scores of: Right Colon = 3, Transverse Colon = 3 and Left Colon = 3 (entiremucosa seen well with no residual staining, smallfragments of stool or opaque liquid). The total BBPS score equals 9. The bowel preparation used wasNuLytely. Findings: Hemorrhoids were found on perianal exam. The terminal ileum appeared normal. The entire examined colon appeared normal on direct and retroflexion views. Impression: - Hemorrhoids found on perianal exam. - The examined portion of the ileum was normal. - The entire examined colon is normal on direct and retroflexion views. - No specimens collected. Recommendation: - Repeat colonoscopy in 10 years for screening purposes. - Return to referring physician as previously scheduled. Attending Participation: I personally performed the entire procedure. Electronically signed by Zay Schulz MD Zay Schulz M.D. 05/13/2020 10:52:04 AM Number of Addenda: 0 Note Initiated On: 05/13/2020 10:20 AM us Zay Sharma MD ENDOSCOPY PROCEDURES Final Res ult * Hepatitis C antibody (05/31/2018 9:21 AM CDT) Hep C Ab Nonreactive Nonreactive [facility] Comment: Interpretive Data Positive results should be confirmed by a molecular method. If positive, a second separately collected sample should be submitted for Hepatitis C Virus (HCV) RNA Detection and Quantitation by Real-Time Reverse Glue Spreader-PCR (RT-PCR). Current interpretive data was last revised on 2016. Blood specimen (specimen) 05/31/2018 9:21 AM CDT 05/31/2018 11:47 AM CDT Narrative [facility] - 05/31/2018 1:04 PM CDT Estela Villasenor MD LAB MICROBIOLOGY - GEN ERAL ORDERABLES Edited Result - Final [facility] [place] [address] from Last 3 Months or Most Recently Relevant to Health Maintenance Insurance [employer] Address: [facility] [id number] [place] [id number] [facility] [employer] [employer] Address: [facility] [id number] [place] [address] [employer] [facility] [facility] [employer] [employer] [employer] Address: [facility] [id number] [place] [phone] Advance Directives For more information, please contact: [phone] * Full Code (Latest Code Status on File) Date Activated Date Inactivated Comments 08/30/2023 12:59 PM 08/30/2023 8:34 PM * Full Code Date Activated Date Inactivated Comments 03/08/2023 9:01 AM 03/08/2023 2:20 PM * Full Code Date Activated Date Inactivated Comments 05/13/2020 9:52 AM 05/13/2020 3:32 PM Care Teams Freight Car Repairer Relationship Specialty Start Date End Date Estela Villasenor MD PCP - General Internal Medicine 10/22/16
--- OUTSIDE RECORDS SUMMARY | 2024-08-01 02:35 | XMS_ITS | Clinical Summary ---
Author Organization [facility] Address [address] [place] [address] Phone Care Team Providers Care Account Services Coordinator Name Role Phone Estela Villasenor MD Primary Care Provider Allergies Active Allergy Reactions Criticality Noted Date [...] (04/24/2020): Added automatically from request for surgery [id number] Chronic low back pain 11/26/2016 Hyperlipidemia 11/26/2016 Obesity (BMI 35.0-39.9 without comorbidity) 09/2016 Lumbar radiculopathy 12/29/2012 Presbyopia 05/01/2010 Snoring 01/03/2010 Acute bronchitis Mild persistent asthma Encounters Date Type Department Care Team Description 05/09/2024 Results Follow-Up [address] [place] [address] Estela Villasenor MD from Last 3 Months Immunizations Immunization Administration Dates Next Due Influenza, Quadrivalent, Spl it, Preservative Free, Intramuscular 12/24/2022,01/15/2022 Influenza, Trivalent, Preser vative Free, Intramuscular 12/31/2023 Influenza, Unspecified 01/04/2024,2021,12/20/2020,12/20,12/31/2017,12/21/2016 Pfizer SARS-CoV-2 Monovalent Vaccination (12+ Yrs) PURPLE 04/02/2020,03/12/2020 Tdap 05/31/2018 Surgical History Surgery Date Site/Laterality Comments CHOLECYSTECTOMY 03/22/1991 - 03/21/1992 COLONOSCOPY VAGINAL DELIVERY x 2 w/ epidural DILATION AND CURETTAGE OF UTERUS 02/19/2023 - 03/21/2023 Medical History Medical History Date Comments Anxiety 2014 - dx cancer Migraines ? on occasion Bronchitis seasonal Tongue swelling 03/24/2020 Sleep apnea Family History Medical History Relation Name Comments Osteoarthritis Brother 2 Heart disease Father post operative agition Father Cancer Mother Hui/ thyroid thyroid Diabetes Mother Hui/ thyroid Heart disease Mother Hui/ thyroid Anesthesia problems Neg Hx Malig Hyperthermia Neg Hx Pseudochol deficiency Neg Hx Relation Name Status Comments Brother 1 Brother 2 Alive Father Mother Hui/ thyroid Social History Tobacco Use Types Packs/Day Years [...] on file Legal Sex Female 11:31 PM [employer] Gender Identity Female 07/14/2022 9:10 PM CDT Sexual Orientation Not on file 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 on file Not o n file Not on file Obstetrics History Para Term AB IAB SAB Ectopic Multiple Livin g Live Births 3 2 2 1 1 2 2 Date Outcome GA Total Labor Labor/2nd/3rd Weight Sex Type Anes PTL Nancy A1 A5 Name Clin SAB 1991 Term 3.572 kg (7 lb 14 oz) M Vag-Spo nt Living 1996 Term 4.082 kg (9 lb) M Vaginal Living Last Filed Vital Signs Vital Sign Reading Time Taken Comments Blood Pressure 124/76 04/17/2024 10:56 AM [employer] Pulse 91 04/17/2024 10:56 AM [employer] Temperature 36.4 C (97.6 F) 04/17/2024 10:56 AM [employer] Respiratory Rate 20 04/17/2024 10:56 AM [employer] Oxygen Saturation 97% 04/17/2024 10:56 AM [employer] Inhaled Oxygen Concentration - - Weight 110.7 kg (244 lb) 04/17/2024 10:56 AM [employer] Height 165.1 cm (5' 5 ) 04/17/2024 10:56 AM [employer] Body Mass Index 40.6 04/17/2024 10:56 AM [employer] Plan of Treatment Health Maintenance Due Date Last Done Comments Pneumococcal vaccine <65 (1 of 2 - PCV) 10/02/1982 Zoster Vaccine (1 of 2) 10/02/2013 Breast Cancer Screening-Mammogram 05/23/2023 05/22/2022, 01/02/2020, 08/19/2017, Additional history exists Cervical Cancer Screening 10/09/20232022, 10/08/2022, 08/20/2017 Covid-19 Vaccine (3 - 2023-2 5 season) 2023 04/02/2020, 03/12/2020 Depression Screening 04/17/2025 04/17/2024, 04/15/2023, 07/15/2022, Additional history exists Regular Well Visit/Exam 18-64 04/17/2025, 04/15/2023, 04/15/2023, Additional history exists DTaP/Tdap/Td Vaccine (2 - Td or Tdap) 05/31/2028 05/31/2018 Colon Cancer Screening-Colonoscopy 05/13/2030 05/13/2020 Hepatitis C Screening Completed 05/31/2018 Colon Cancer Screening-CT Colonography Discontinued 05/13/2020 Colon Cancer Screening-DNA Stool Discontinued 05/13/19 Colon Cancer Screening-FIT Discontinued 05/13/2020 Colon Cancer Screening-Sigmoidoscopy Discontinued 05/13/2020 Influenza Vaccine Completed 01/04/2024, , 12/24/2022, Additional history exists Hepatitis B Screening Completed 04/28/2024 Medical Devices Implanted Type Area Editor Map Device Identifier Shelf Expiration Date Model / Serial / Lot [employer] Simplex P Full Dose Radiopaque Preblend Cement Bone Tobramycin 6197-9-010 - [id number] Implanted:Qty: 1 on 08/30/2023 at [facility] Left: Knee [employer] 11/19/2024 6197-9-010 / / [id number] [employer] Simplex P Full Dose Radiopaque Preblend Cement Bone Tobramycin 6197-9-010 - [id number] Implanted:Qty: 1 on 08/30/2023 at [facility] Left: Knee [employer] 11/19/2024 6197-9-010 / / [id number] [employer] Simplex P Full Dose Radiopaque Preblend Cement Bone Tobramycin 6197-9-010 - [id number] Implanted:Qty: 1 on 08/30/2023 at [facility] Left: Knee [employer] 11/19/2024 6197-9-010 / / [id number] [employer] Attune Cruciate Retain Cementless Knee Left 6 Narrow Component [id number] - [id number] Implanted:Qty: 1 on 08/30/2023 at [facility] Left: Knee [employer] 06/19/2033 [id number] / / [id number] [employer] Attune S+ Cement Fix Bearing Knee 4 Baseplate Tibial [id number] - [id number] Implanted:Qty: 1 on 08/30/2023 at [facility] Left: Knee [employer] 06/19/2033 [id number] / / [id number] [employer] Insert Tibial Knee Fixed Lm Posterior Stabilized Attune 5mm Size 6 Polyethylene [id number] - [id number] Implanted:Qty: 1 on 08/30/2023 at [facility] Left: Knee [employer] 05/20/2031 [id number] / / [id number] Procedures Procedure Name Priority Date/Time Associated Diagnosis Comments HIGH RISK HPV DNA DETECTION WITH GENOTYPING Routine 10/08/2022 7:52 AM CDT Screening for cervical cancer SCREENING MAMMOGRAM BILATERAL W XANDER Schedule Routine, Read Routine (OP Routine) 05/22/2022 7:40 AM [employer] Screening mammogram, encounter for COLONOSCOPY 05/13/2020 10:20 AM [employer] HEPATITIS C ANTIBODY Routine 05/31/2018 9:21 AM CDT Encounter for hepatitis C screening test for low risk patient from Last 3 Months or Most Recently Relevant to Health Maintenance Results * High Risk HPV DNA Detection with Genotyping (Molecular component) (10/08/2022 7:52 AM CDT) HPV HR 16 Not Detected Not Detected [facility] Comment:Collection date/time has been modified to: 07:52:00. Previous collection date/time: 07:52:00. HPV HR 18 Not Detected Not Detected [facility] Comment:Collection date/time has been modified to: 07:52:00. Previous collection date/time: 07:52:00. HPV HR Non 16/18 Not Detected Not Detected [facility] Comment: Collection date/time has been modified [...] this test have been verified by the [facility] Molecular Infectious Disease laboratory. Correlate with separately reported cytology results, as applicable. Interpretive data last revised 22 Endocervical 10/08/2022 7:52 AM CDT 10/09/2022 4:49 PM CDT Narrative [facility] - 10/12/2022 11:18 AM CDT Clinical history and diagnosis->Screening Number of vials->1 Testing type->Screening Last menstrual period (date if known)->age 38 Menstrual status->Postmenopausal Sunita Bonilla SUPER[employer] BODY FLUIDS AND STO OLS ORDERABLES Edited Result - Final [facility] Department [place] [address] * Screening Mammogram Bilateral W Xander (05/22/2022 7:40 AM [employer]) Anatomical Region Laterality Modality Breast Bilateral Mammography Narrative 05/25/2022 2:23 PM [employer] Mammogram Technique: Bilateral Digital Breast Tomosynthesis, Bilateral C-view 2D Screening mammogram. Views obtained: bilateral craniocaudal and bilateral mediolateral oblique. Computer Aided Detection was performed. Mammogram Findings: The present examination has been compared to prior imaging studies performed at [facility] on 12/14/2012, 08/19/2017 and 01/02/2020. There are [...] compared to prior imaging studies performed at [facility] on 12/14/2012, 08/19/2017 and 01/02/2020. There are scattered areas of fibroglandular density. There is no suspicious abnormality in either breast. Impression: There is no mammographic evidence of malignancy. Annual screening mammography is recommended. OVERALL FINAL ASSESSMENT: BI-RADS CATEGORY 1: Negative. us Self Screening Mammogram IMG MAMMO PROCEDURES Fi nal Result * COLONOSCOPY (05/13/2020 10:20 AM [employer]) Anatomical Region Laterality Modality Other Narrative Procedure Note Zay Schulz MD - 05/13/2020 10:20 AM CST ENDOSCOPY LAB Patient Name: Drea Aguirre Alba Procedure Date: 05/13/2020 10:20 AM Date of : 1965 Admit Type: Outpatient Age: 54 Gender: Female Attending MD: Zay Schulz M.D. Room: [facility] ENDOSCOPY ROOM 04 Note Status: Finalized Procedure: [...] The scope was passed under direct vision.The [id number] was introduced through the anusand advanced to [...] Hep C Ab Nonreactive Nonreactive [facility] Comment: Interpretive Data Positive results should be confirmed by a molecular method. If positive, a second separately collected sample should be submitted for Hepatitis C Virus (HCV) RNA Detection and Quantitation by Real-Time Reverse Therapist'S Assistant-PCR (RT-PCR). Current interpretive data was last revised on 2016. Blood specimen (specimen) 05/31/2018 9:21 AM CDT 05/31/2018 11:47 AM CDT [facility] - 05/31/2018 1:04 PM CDT Estela Villasenor MD LAB MICROBIOLOGY - GEN ERAL ORDERABLES Edited Result - Final [facility] Department [place] [address] from Last 3 Months or Most Recently Relevant to Health Maintenance Insurance [employer] Address: [facility] [id number] [place] [address] [employer] Address: [facility] [id number] [place] [address] [facility] Advance Directives For more information, please contact: [phone] * Full Code (Latest Code Status on File) Date Activated Date Inactivated Comments 08/30/2023 12:59 PM 08/30/2023 8:34 PM * Full Code Date Activated Date Inactivated Comments 03/08/2023 9:01 AM 03/08/2023 2:20 PM * Full Code Date Activated Date Inactivated Comments 05/13/2020 9:52 AM 05/13/2020 3:32 PM Care Teams Account Services Coordinator Relationship Specialty Start Date End Date Estela Villasenor MD PCP - General Internal Medicine 10/22/16
[2024-08-01 02:36] VITALS: PULSE 124; RESP 17; TEMP 36.8; O2SAT 98
[2024-08-01 02:42] VITALS: O2SAT 98
[2024-08-01] MEDS: FAMOTIDINE 20 MG/2 ML VIAL ×2 (02:44→02:45)
[2024-08-01] MEDS: diphenhydrAMINE HCl INJ 50 MG/ML VIAL (02:45)
[2024-08-01] MEDS: dexAMETHasone SOD PHOS INJ 10 MG/ML 1 ML VIAL (02:45)
--- NOTE | 2024-08-01 02:47 | ED.GENADULT ---
HPI - General Adult General Chief complaint: Allergic Reaction Stated complaint: tongue swelling Time Seen by Provider: 08/01/24 02:45 History of Present Illness HPI narrative: This is a 4-year-old female history of idiopathic angioedema presenting for tongue swelling. Patient was woken from sleep around 2:00 a.m. with swelling on the left side of her tongue. She gave herself an EpiPen injection, took 40 mg of prednisone and 25 of Benadryl. She then came to the hospital. She did notice her voice is slightly hoarse but she is still tolerating her own secretions and breathing without difficulty. No urticaria. No wheezing, nausea vomiting or diarrhea. This is happening her many times in the past and they have been unable to find a trigger. Related Data Allergies Allergy/AdvReac Type Severity Reaction Status Date / Time prochlorperazine Allergy Mild Unknown Verified 08/01/24 02:33 [facility] Past Medical History Medical History No significant past medical history Surgical History Surgical History No significant past surgical history Social History Social History Smoking status: Never smoker Alcohol intake: never Substance use: never Gender identity (if verbalized by the patient): Female Exam Narrative: APPEARANCE: No apparent distress. Head: No swelling of the patient's lips, left-sided swelling of the patient's tongue without occlusion of the oropharynx, no swelling of the uvula, tolerating her own secretions EYES: EOMI, NOSE: Atraumatic NECK: Trachea midline RESPIRATORY: No increased rate of breathing clear to auscultation CARDIOVASCULAR: RRR, ABDOMINAL: Non-distended MUSCULOSKELETAl: No obvious deformities NEURO: Alert. Moving 4/4 extremities SKIN:: Warm, dry. Normal color PSYCHIATRIC: Normal affect Course Vital Signs Vital signs: Vital Signs Temperature 98.2 F 08/01/24 02:36 Pulse Rate 124 H 08/01/24 02:36 Respiratory Rate 17 08/01/24 02:36 Pulse Oximetry 98 08/01/24 02:36 Oxygen Delivery Room Air 08/01/24 02:36 Temperature 98.2 F 08/01/24 02:36 Pulse Rate 106 H 08/01/24 04:10 Respiratory Rate 24 H 08/01/24 04:10 Blood Pressure 150/66 H 08/01/24 04:10 Pulse Oximetry 98 08/01/24 04:10 Oxygen Delivery Room Air 08/01/24 02:42 Medical Decision Making MDM Narrative Medical decision making narrative: -Course: 58 year-old female presenting with left-sided tongue swelling. She gave herself epi Benadryl and prednisone at home. She was treated here with shot dexamethasone Benadryl and Pepcid. She was monitored for 3 hours in the swelling continued to improve. She is comfortable going home. Her EpiPen was refilled. Given return precautions. -DDX includes but is not limited to: Allergic angioedema, idiopathic angioedema Vital Signs Vital Signs: Vital Signs Temperature 98.2 F 08/01/24 02:36 Pulse Rate 124 H 08/01/24 02:36 Respiratory Rate 17 08/01/24 02:36 Pulse Oximetry 98 08/01/24 02:36 Oxygen Delivery Room Air 08/01/24 02:36 Temperature 98.2 F 08/01/24 02:36 Pulse Rate 106 H 08/01/24 04:10 Respiratory Rate 24 H 08/01/24 04:10 Blood Pressure 150/66 H 08/01/24 04:10 Pulse Oximetry 98 08/01/24 04:10 Oxygen Delivery Room Air 08/01/24 02:42 Discharge Plan Discharge Clinical Impression: Angioedema Patient Disposition: Home Condition: Stable Instructions: Antibiotic Form, Angioedema (ED) Patient Language: Indonesian Prescriptions: New epinephrine 0.3 mg/0.3 mL auto-injector 0.3 mg IM ONCE Qty: 2 0RF Rx Instructions: as a single dose; may repeat once No Action prednisone 50 mg tablet 50 mg PO DAILY Qty: 5 0RF epinephrine [EpiPen 2-Del] 0.3 mg/0.3 mL auto-injector 0.3 mg IM ONCE Qty: 2 0RF Rx Instructions: as a single dose; may repeat once epinephrine [EpiPen 2-Del] 0.3 mg/0.3 mL auto-injector 0.3 ml subcut Q5-15M PRN (Reason: anaphylaxis) Qty: 2 0RF Rx Instructions: do not exceed 2 doses per episode prednisone 10 mg tablet 10 mg PO DAILY 14 Days Qty: 38 0RF Rx Instructions: take 4 tablets daily day 1-5 then 3 tablets daily day 6-8, 2 tablets daily day 9-11, 1 tablet daily day 12-14 prednisone 20 mg tablet 40 mg PO DAILY 5 Days Qty: 10 0RF Follow-up/Referrals: PHYSICIAN,BOTTLE WASHER [Primary Care Provider] -
--- OUTSIDE RECORDS SUMMARY | 2024-08-01 03:01 | XMS_ITS | Continuity of Care Document ---
Author Organization [employer] [place] Address [address] [place] [address] [address] [place] [address] Phone Care Team Providers Care Security Support Analyst Name Role Phone Maynor PT,MPT,ATC, Hector Unavailable [...] Re-Ed Therapeutic Exercise Therapeutic Activities Therapeutic Exercise Neuromuscular Re-Ed Therapeutic Activities Neuromuscular Re-Ed Therapeutic Exercise Therapeutic [...] Diagnoses Date Provider Providers Copied on Encounter [facility], [address] [address], [place], [place], [id number], tel:[phone] [place] No Information 5 [place], [place]. [facility] [address], [place], [place], [id number], tel:[phone] [place] No Information 4 [place]. . Referring Provider: Flor Dc [facility] [address], [facility]. tel:[phone] [facility] [address] [address], [place], [place], [address], tel:[phone] [place] No Information 4 [place] Donald. . Referring Provider: Flor Dc [facility] [address], [address]. tel:[phone] [facility] [address] [address], [place], [place], [id number], tel:[phone] [place] No Information 4 [place] Donald. . Referring Provider: Flor Dc [facility] [address], [address]. tel:[phone] [facility] [address] [facility] [address], [place], [place], [id number], [place] tel:[phone] [place] No Information Oct- 4-202 4 [place]. . Referring Provider: Guillaume Ambrocio VivianaKirsty [facility] [address], [address]. tel:[phone] [place] [address], [address] [place] [address], [place], [place], [address], [place] tel:[phone] [place] No Information Sep-3 0-202 4 [place] Donald. . Referring Provider: Guillaume Ambrocio, [address] [place] [address] Medical Office Building [address], [address]. tel:[phone] [place] [address], [address] [place] [address], [place], [place], [id number], tel:[phone] [place] No Information Sep-2 3-202 4 [place]. Referring Provider: Flor Dc [facility] [address], [address]. tel:[phone] [place] [address], [address] [place] [address], [place], [place], [address], [place] tel:[phone] [place] No Information Sep-1 6-202 4 [place]. . Referring Provider: Guillaume [facility]rocio [facility] [address], [address]. tel:[phone] [place] [address], [address] [facility] [address], [place], [place], [address], [place] tel:[phone] [place] No Information Sep-0 9-202 4 [place] Donald. . Referring Provider: Guillaume Ambrocio [facility] [address], [address]. tel:[phone] [place] [address], [address] [place], [place] [address], [place], [place], [address], [place] tel:[phone] [place] No Information Sep-0 3-202 4 [place] Donald. . Referring Provider: Guillaume Ambrocio VivianaKirsty [facility] [address], [address]. tel:[phone] [place] [address], [address] [address], [place], [place], [address], tel:[phone] [place] No Information 4 [place] Donald. . Referring Provider: Flor Dc [facility] [address], [address]. tel:[phone] [place] [address], [address] [address], [place], [place], [address], [place] tel:[phone] [place] No Information 4 [place] Donald. . Referring Provider: Flor Dc [facility] [address], [address]. tel:[phone] [place] [address], [address] [address], [place], [place], [address], [place] tel:[phone] [place] No Information 4 [place] Donald. . Referring Provider: Flor Dc [facility] [address], [address]. tel:[phone] [place] [address], [address] [address], [place], [place], [address], [place] tel:[phone] [place] No Information 4 [place] Donald. . Referring Provider: Flor Dc [facility] [address], [address]. tel:[phone] [place] [address], [address] [address], [place], [address], [place] tel:[phone] [place] No Information 4 [place] Donald. . Referring Provider: Flor Dc [facility] [address], [address]. tel:[phone] [place] [address], [address] [facility] [address], [place], [place], [address], [place] tel:[phone] [place] No Information 1 3-202 4 [place] Donald. . Referring Provider: Guillaume Ambrocio, Flor [facility] [address], [address]. tel:[phone] [place] [address], [address] [facility] [address], [place], [place], [address], [place] tel:[phone] [place] No Information 0 8 4 [place] Donald. . Referring Provider: Flor Dc [facility] [address], [address]. tel:[phone] [place] [address], [address] [place] [address], [place], [place], [address], [place] tel:[phone] [place] No Information 0 6202 4 [place] Donald. . Referring Provider: Flor Dc [facility] [address], [address]. tel:[phone] [place] [address], [address] [address], [place], [place], [address], [place] tel:[phone] [place] No Information 0 1 4 [place] Donald. . Referring Provider: Flor Dc [facility] [address], [address]. tel:[phone] [place] [address], [address] [facility] [address], [place], [place], [address], [place] tel:[phone] [place] No Information 3 0-202 4 [place] Donald. . Referring Provider: Flor Dc [facility] [address], [address]. tel:[phone] [place] [address], [address] [facility] [address], [place], [place], [address], [place] tel:[phone] [place] No Information 4 [place]. Referring Provider: Flor Dc [facility] [address], [address]. tel:[phone] [place] [address], [address] [facility] [address], [place], [place], [address], [place] tel:[phone] [place] No Information 4 [place]. . Referring Provider: Flor Dc [facility] [address], [address]. tel:[phone] [place] [address], [address] [address], [place], [place], [address], [place] tel:[phone] [place] No Information 4 [place]. Referring Provider: Flor Dc [facility] [address], [address]. tel:[phone] [place] [address], [address] [address], [place], [place], [address], [place] tel:[phone] [place] No Information 4 [place] Donald. . Referring Provider: Flor Dc [facility] [address], [address]. tel:[phone] [facility], [address] [facility] [address], [place], [place], [address], [place] tel:[phone] [place] No Information 4 [place] Donald. . Referring Provider: Flor Dc [facility] [address], [address]. tel:[phone] [facility], [address] [facility] [address], [place], [place], [address], [place] tel:[phone] [place] No Information 4 [place]. . Referring Provider: Guillaume Ambrocio Flor [facility] [address], [address]. tel:[phone] [place] [address], [address] [place] [address], [place], [place], [address], tel:[phone] [place] No Information 0 5- 4 [place] Donald. . Referring Provider: Guillaume Ambrocio Flor [facility] [address], [address]. tel:[phone] [place] [address], [address] [place] [address], [place], [place], [id number], [place] tel:[phone] [place] No Information 0 3- 4 [place] Donald. . Referring Provider: Guillaume Ambrocio Flor [facility] [address], [address]. tel:[phone] [place] [address], [address] [place] [address], [place], [place], [address], [place] tel:[phone] [place] No Information 4 Taran Enriquez. . Referring Provider: Guillaume Ambrocio Flor [facility] [address], [address]. tel:[phone] [place] [address], [address] [place] [address], [place], [place], [id number], [place] tel:[phone] [place] No Information 4 Taran Enriquez. . Referring Provider: Guillaume Ambrocio Flor [facility] [address], [address]. tel:[phone] [place] [address], [address] [place] [address], [place], [place], [address], [place] tel:[phone] [place] No Information 4 Taran Enriquez. . Referring Provider: Guillaume Ambrocio VivianaKirsty [facility] [address], [address]. tel:[phone] [facility], [address], [place], [place], [address], [place] tel:[phone] [place] No Information Dec-1 3-201 7 [place], [place]. Referring Provider: Estela Villasenor, [address] [place] [address] [address], [place], [address]. tel:[phone] [facility], [address], [place], [place], [address], [place] tel:[phone] [place] No Information Oct-0 9-201 7 [place]. Referring Provider: Estela Villasenor, [address] [place] [address] [address], [place], [address]. tel:[phone] [facility], [address], [place], [place], [address], [place] tel:[phone] [place] No Information Dec-0 2-201 7 [place] Referring Provider: Estela Villasenor, [address] [place] [address] [address], [place], [address]. tel:[phone] [facility], [place], [place], [address], [place] tel:[phone] [place] No Information Sep-2 9- 7 [place] Referring Provider: Estela Villasenor, [address] [place] [address] [address], [place], [address]. tel:[phone] [facility], [address], [place], [place], [address], [place] tel:[phone] [place] No Information Sep-2 0-201 7 [place]. Referring Provider: Estela Villasenor, [address] [place] [address] [address], [place], [address]. tel:[phone] [facility], [address] [place] [address], [place], [address], [place] tel:[phone] Matt Pain in left shoulder Nov- 7 [place], [place]. Referring Provider: Estela Villasenor, [address] [facility] [address], [place], [address]. tel:[phone] Family History Family Member Type Diagnosis Age At Onset No Information Payers Payer name Insurance type Covered constitution party ID Migel mobley(hoa Crooks [facility] CI [id number] Social History Type Description Quantity Date Captured [...]
--- OUTSIDE RECORDS SUMMARY | 2024-08-01 03:01 | XMS_ITS | Encounter Summary ---
Author Organization [facility] Address [address] [place] [address] Phone Care Team Providers Care Sausage Wrapper Name Role Phone Estela Villasenor MD Primary Care Provider Encounter Details Date Type Department Care Team (Late st Contact Info) Description 08/20/2017 Orders Only [facility] ProviderMoncho [facility] [place] [address] Social History Tobacco Use Types Packs/Day Years Used Date Smoking Tobacco: Never Smokeless Tobacco: Never Comments Unknown Sex and Gender Information Value Date Recorded Sex Assigned at Not on file Legal Sex Female 11:31 PM SURG PHYSICIAN ASST Gender Identity Female 07/14/2022 9:10 PM CDT [...] COVID: Suspected 04/18/2021 04/18/2021 04/19/2021 12:12 AM SURG PHYSICIAN ASST COVID: Suspected 05/02/2021 05/02/2021 05/03/2021 3:05 AM SURG PHYSICIAN ASST COVID: Suspected 05/02/2021 05/02/2021 05/03/2021 6:25 AM SURG PHYSICIAN ASST COVID: Suspected 09/03/2021 09/03/2021 09/03/2021 3:37 PM CDT COVID19 09/03/2021 09/03/2021 09/13/2021 3:05 AM CDT COVID: Recovered Comment:Added based on recent COVID infection. 09/13/2021 09/13/2021 01/11/2022 3:05 AM C DT COVID: Suspected 02/14/2024 02/14/2024 02/14/2024 4:40 PM SURG PHYSICIAN ASST documented as of this encounter Care Teams Sausage Wrapper Relationship Specialty Start Date End Date Estela Villasenor MD PCP - General Internal Medicine 10/22/16 documented as of this encounter
--- OUTSIDE RECORDS SUMMARY | 2024-08-01 03:01 | XMS_ITS | Clinical Summary ---
Author Organization [facility] Address [address] [facility] [address] [place] [address] Phone Care Team Providers Care Stock Clerk Self Service Store Name Role Phone Estela Villasenor MD Primary [...] (04/24/2020): Added automatically from request for surgery [id number] Chronic low back pain 11/26/2016 Hyperlipidemia 11/26/2016 Obesity (BMI 35.0-39.9 without comorbidity) 09/2016 Lumbar radiculopathy 12/29/2012 Presbyopia 05/01/2010 Snoring 01/03/2010 Acute bronchitis Mild persistent asthma Encounters Date Type Department Care Team Description 05/09/2024 Results Follow-Up [address] [place] [address] Estela Villasenor MD from Last [...] on file Legal Sex Female 11:31 PM GOLD WHEEL BLOCKER AND POLISHER Gender Identity Female 07/14/2022 9:10 PM CDT [...] Comments Blood Pressure 124/76 04/17/2024 10:56 AM GOLD WHEEL BLOCKER AND POLISHER Pulse 91 04/17/2024 10:56 AM GOLD WHEEL BLOCKER AND POLISHER Temperature 36.4 C (97.6 F) 04/17/2024 10:56 AM GOLD WHEEL BLOCKER AND POLISHER Respiratory Rate 20 04/17/2024 10:56 AM GOLD WHEEL BLOCKER AND POLISHER Oxygen Saturation 97% 04/17/2024 10:56 AM GOLD WHEEL BLOCKER AND POLISHER Inhaled Oxygen Concentration - - Weight 110.7 kg (244 lb) 04/17/2024 10:56 AM GOLD WHEEL BLOCKER AND POLISHER Height 165.1 cm (5' 5 ) 04/17/2024 10:56 AM GOLD WHEEL BLOCKER AND POLISHER Body Mass Index 40.6 04/17/2024 10:56 AM GOLD WHEEL BLOCKER AND POLISHER Plan of Treatment Health Maintenance Due Date [...] Completed 04/28/2024 Medical Devices Implanted Type Area Macroeconomics Professor Device Identifier Shelf Expiration Date Model / Serial / Lot [employer] Simplex P Full Dose Radiopaque Preblend Cement Bone Tobramycin 6197-9-010 - [id number] Implanted:Qty: 1 on 08/30/2023 at [facility] Left: Knee [employer] 11/19/2024 6197-9-010 / / [id number] [employer] Simplex P Full Dose Radiopaque Preblend Cement Bone Tobramycin 6197-9-010 - [id number] Implanted:Qty: 1 on 08/30/2023 at [facility] Left: Knee [employer] 11/19/2024 6197-9-010 / / [id number] [employer] Simplex P Full Dose Radiopaque Preblend Cement Bone Tobramycin 6197-9-010 - [id number] Implanted:Qty: 1 on 08/30/2023 at [facility] Left: Knee [employer] 11/19/2024 6197-9-010 / / [id number] [employer] Attune Cruciate Retain Cementless Knee Left 6 Narrow Component [id number] - [id number] Implanted:Qty: 1 on 08/30/2023 at [facility] Left: Knee [employer] 06/19/2033 [id number] / / [id number] [employer] Attune S+ Cement Fix Bearing Knee 4 Baseplate Tibial [id number] - [id number] Implanted:Qty: 1 on 08/30/2023 at [facility] Left: Knee [employer] 06/19/2033 [id number] / / [id number] [employer] Insert Tibial Knee Fixed Lm Posterior Stabilized Attune 5mm Size 6 Polyethylene [id number] - [id number] Implanted:Qty: 1 on 08/30/2023 at [facility] Left: Knee [employer] 05/20/2031 [id number] / / [id number] Procedures Procedure Name Priority Date/Time Associated Diagnosis Comments HIGH RISK HPV DNA DETECTION WITH GENOTYPING Routine 10/08/2022 7:52 AM CDT Screening for cervical cancer SCREENING MAMMOGRAM BILATERAL W XANDER Schedule Routine, Read Routine (OP Routine) 05/22/2022 7:40 AM GOLD WHEEL BLOCKER AND POLISHER Screening mammogram, encounter for COLONOSCOPY 05/13/2020 10:20 AM GOLD WHEEL BLOCKER AND POLISHER HEPATITIS C ANTIBODY Routine 05/31/2018 9:21 AM CDT Encounter for hepatitis C screening test for low risk patient from Last 3 Months or Most Recently Relevant to Health Maintenance Results * High Risk HPV DNA Detection with Genotyping (Molecular component) (10/08/2022 7:52 AM CDT) HPV HR 16 Not Detected Not Detected [facility] Comment:Collection date/time has been modified to: 07:52:00. Previous collection date/time: 07:52:00. HPV HR 18 Not Detected Not Detected [facility] Comment:Collection date/time has been modified to: 07:52:00. Previous collection date/time: 07:52:00. HPV HR Non 16/18 Not Detected Not Detected [facility] Comment: Collection date/time has been modified [...] this test have been verified by the [facility] Molecular Infectious Disease laboratory. Correlate with separately reported cytology results, as applicable. Interpretive data last revised 22 Endocervical 10/08/2022 7:52 AM CDT 10/09/2022 4:49 PM CDT Narrative [facility] - 10/12/2022 11:18 AM CDT Clinical history and diagnosis->Screening Number of vials->1 Testing type->Screening Last menstrual period (date if known)->age 38 Menstrual status->Postmenopausal Sunita Bonilla SYSTEMS SOFTWARE MANAGER LAB BODY FLUIDS AND STO OLS ORDERABLES Edited Result - Final [facility] Department [place] [address] * Screening Mammogram Bilateral W Xander (05/22/2022 7:40 AM GOLD WHEEL BLOCKER AND POLISHER) Anatomical Region Laterality Modality Breast Bilateral Mammography Narrative 05/25/2022 2:23 PM GOLD WHEEL BLOCKER AND POLISHER Mammogram Technique: Bilateral Digital Breast Tomosynthesis, Bilateral C-view 2D Screening mammogram. Views obtained: bilateral craniocaudal and bilateral mediolateral oblique. Computer Aided Detection was performed. Mammogram Findings: The present examination has been compared to prior imaging studies performed at [facility] on 12/14/2012, 08/19/2017 and 01/02/2020. [...] compared to prior imaging studies performed at [facility] on 12/14/2012, 08/19/2017 and 01/02/2020. There are scattered areas of fibroglandular density. There is no suspicious abnormality in either breast. Impression: There is no mammographic evidence of malignancy. Annual screening mammography is recommended. OVERALL FINAL ASSESSMENT: BI-RADS CATEGORY 1: Negative. us Self Screening Mammogram IMG MAMMO PROCEDURES Fi nal Result * COLONOSCOPY (05/13/2020 10:20 AM GOLD WHEEL BLOCKER AND POLISHER) Anatomical Region Laterality Modality Other Narrative Procedure Note Zay Schulz MD - 05/13/2020 10:20 AM CST ENDOSCOPY LAB Patient Name: Drea Aguirre Alba Procedure Date: 05/13/2020 10:20 AM Date of : 1965 Admit Type: Outpatient Age: 54 Gender: Female Attending MD: Zay Schulz M.D. Room: [facility] ENDOSCOPY ROOM 04 Note Status: Finalized [...] The scope was passed under direct vision.The [id number] was introduced through the anusand advanced to [...] CDT) Hep C Ab Nonreactive Nonreactive [facility] Comment: Interpretive Data Positive results should be confirmed by a molecular method. If positive, a second separately collected sample should be submitted for Hepatitis C Virus (HCV) RNA Detection and Quantitation by Real-Time Reverse English Instructor-PCR (RT-PCR). Current interpretive data was last revised on 2016. Blood specimen (specimen) 05/31/2018 9:21 AM CDT 05/31/2018 11:47 AM CDT [facility] - 05/31/2018 1:04 PM CDT Estela Villasenor MD LAB MICROBIOLOGY - GEN ERAL ORDERABLES Edited Result - Final [facility] Department [place] [address] from Last 3 Months or Most Recently Relevant to Health Maintenance Insurance [employer] Address: [facility] [id number] [place] [address] [employer] Address: [facility] [address] [place] [address] [facility] Advance Directives For more information, please contact: [phone] * Full Code (Latest Code Status on File) Date Activated Date Inactivated Comments 08/30/2023 12:59 PM 08/30/2023 8:34 PM * Full Code Date Activated Date Inactivated Comments 03/08/2023 9:01 AM 03/08/2023 2:20 PM * Full Code Date Activated Date Inactivated Comments 05/13/2020 9:52 AM 05/13/2020 3:32 PM Care Teams Stock Clerk Self Service Store Relationship Specialty Start Date End Date Estela Villasenor MD PCP - General Internal Medicine 10/22/16
--- OUTSIDE RECORDS SUMMARY | 2024-08-01 03:01 | XMS_ITS | Referral Summary ---
Author Organization [facility] Address [address] [place] [address] Phone Care Team Providers Care Dialysis Clinical Manager Name Role Phone Estela Villasenor MD Primary Care Provider Encounters Date Type Department Care Team Description 05/09/2024 Results Follow-Up [facility] [address] [place] [address] Estela Villasenor MD from Last [...] (04/24/2020): Added automatically from request for surgery [id number] Chronic low back pain 11/26/2016 Hyperlipidemia 11/26/2016 [...] on file Legal Sex Female 11:31 PM [facility] Gender Identity Female 07/14/2022 9:10 PM CDT Sexual Orientation Not on file 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 on file Not o n file Not on file Last Filed Vital Signs Vital Sign Reading Time Taken Comments Blood Pressure 124/76 04/17/2024 10:56 AM [facility] Pulse 91 04/17/2024 10:56 AM [facility] Temperature 36.4 C (97.6 F) 04/17/2024 10:56 AM [facility] Respiratory Rate 20 04/17/2024 10:56 AM [facility] Oxygen Saturation 97% 04/17/2024 10:56 AM [facility] Inhaled Oxygen Concentration - - Weight 110.7 kg (244 lb) 04/17/2024 10:56 AM [facility] Height 165.1 cm (5' 5 ) 04/17/2024 10:56 AM [facility] Body Mass Index 40.6 04/17/2024 10:56 AM [facility] Plan of Treatment Not on file Medical Devices Implanted Type Area Road Marker Device Identifier Shelf Expiration Date Model / Serial / Lot [employer] Simplex P Full Dose Radiopaque Preblend Cement Bone Tobramycin 6197-9-010 - [id number] Implanted:Qty: 1 on 08/30/2023 at [facility] Left: Knee [employer] 11/19/2024 6197-9-010 / / [id number] [employer] Simplex P Full Dose Radiopaque Preblend Cement Bone Tobramycin 6197-9-010 - [id number] Implanted:Qty: 1 on 08/30/2023 at [facility] Left: Knee [employer] 11/19/2024 6197-9-010 / / [id number] [employer] Simplex P Full Dose Radiopaque Preblend Cement Bone Tobramycin 6197-9-010 - [id number] Implanted:Qty: 1 on 08/30/2023 at [facility] Left: Knee [employer] 11/19/2024 6197-9-010 / / [id number] [employer] Attune Cruciate Retain Cementless Knee Left 6 Narrow Component [id number] - [id number] Implanted:Qty: 1 on 08/30/2023 at [facility] Left: Knee [employer] 06/19/2033 [id number] / / [id number] [employer] Attune S+ Cement Fix Bearing Knee 4 Baseplate Tibial [id number] - [id number] Implanted:Qty: 1 on 08/30/2023 at [facility] Left: Knee [employer] 06/19/2033 [id number] / / [id number] [employer] Insert Tibial Knee Fixed Lm Posterior Stabilized Attune 5mm Size 6 Polyethylene [id number] - [id number] Implanted:Qty: 1 on 08/30/2023 at [facility] Left: Knee [employer] 05/20/2031 [id number] / / [id number] Procedures Procedure Name Priority Date/Time Associated Diagnosis Comments HIGH RISK HPV DNA DETECTION WITH GENOTYPING Routine 10/08/2022 7:52 AM CDT Screening for cervical cancer SCREENING MAMMOGRAM BILATERAL W KELBY Schedule Routine, Read Routine (OP Routine) 05/22/2022 7:40 AM [facility] Screening mammogram, encounter for COLONOSCOPY 05/13/2020 10:20 AM [facility] HEPATITIS C ANTIBODY Routine 05/31/2018 9:21 AM CDT Encounter for hepatitis C screening test for low risk patient from Last 3 Months or Most Recently Relevant to Health Maintenance Results * High Risk HPV DNA Detection with Genotyping (Molecular component) (10/08/2022 7:52 AM CDT) HPV HR 16 Not Detected Not Detected [facility] Comment:Collection date/time has been modified to: 07:52:00. Previous collection date/time: 07:52:00. HPV HR 18 Not Detected Not Detected [facility] Comment:Collection date/time has been modified to: 07:52:00. Previous collection date/time: 07:52:00. HPV HR Non 16/18 Not Detected Not Detected [facility] Comment: Collection date/time has been modified to: [...] this test have been verified by the [facility] Molecular Infectious Disease laboratory. Correlate with separately reported cytology results, as applicable. 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 Views obtained: bilateral craniocaudal and bilateral mediolateral oblique. Computer Aided Detection was performed. Mammogram Findings: The present examination has been compared to prior imaging studies performed at [facility] on 12/14/2012, 08/19/2017 and 01/02/2020. There are [...] compared to prior imaging studies performed at [facility] on 12/14/2012, 08/19/2017 and 01/02/2020. There are scattered areas of fibroglandular density. There is no suspicious abnormality in either breast. Impression: There is no mammographic evidence of malignancy. Annual screening mammography is recommended. OVERALL FINAL ASSESSMENT: BI-RADS CATEGORY 1: Negative. us Self Screening Mammogram IMG MAMMO PROCEDURES Fi nal Result * COLONOSCOPY (05/13/2020 10:20 AM [facility]) Anatomical Region Laterality Modality Other Narrative Procedure Note Zay Schulz MD - 05/13/2020 10:20 AM CST ENDOSCOPY LAB Patient Name: Drea Willis Procedure Date: 05/13/2020 10:20 AM Date of : 1965 Admit Type: Outpatient Age: 54 Gender: Female Attending MD: Zay Schulz M.D. Room: [facility] ENDOSCOPY ROOM 04 Note Status: Finalized Procedure: [...] The scope was passed under direct vision.The [id number] was introduced through the anusand advanced to [...] CDT) Hep C Ab Nonreactive Nonreactive [facility] Comment: Interpretive Data Positive results should be confirmed by a molecular method. If positive, a second separately collected sample should be submitted for Hepatitis C Virus (HCV) RNA Detection and Quantitation by Real-Time Reverse Green Chain Offbearer-PCR (RT-PCR). Current interpretive data was last revised on 2016. Blood specimen (specimen) 05/31/2018 9:21 AM CDT 05/31/2018 11:47 AM CDT Narrative [facility] - 05/31/2018 1:04 PM CDT Estela Villasenor MD LAB MICROBIOLOGY - GEN ERAL ORDERABLES Edited Result - Final [facility] [place] [address] from Last 3 Months or Most Recently Relevant to Health Maintenance Insurance [facility] [employer] Address: [facility] [id number] [place] [id number] [employer] [employer] [employer] Address[facility] [id number] [place] [address] [facility] [employer] Address: [facility] [id number] [place] [phone] Advance Directives For more information, please contact: [phone] * Full Code (Latest Code Status on File) Date Activated Date Inactivated Comments 08/30/2023 12:59 PM 08/30/2023 8:34 PM * Full Code Date Activated Date Inactivated Comments 03/08/2023 9:01 AM 03/08/2023 2:20 PM * Full Code Date Activated Date Inactivated Comments 05/13/2020 9:52 AM 05/13/2020 3:32 PM Care Teams Dialysis Clinical Manager Relationship Specialty Start Date End Date Estela Villasenor MD PCP - General Internal Medicine 10/22/16
[2024-08-01 04:10] VITALS: BP 150/66; PULSE 106; RESP 24; O2SAT 98
[2024-08-01 05:18] VITALS: BP 135/76; PULSE 101; RESP 18; O2SAT 100
== END 2024-08-01 05:29 | disposition home or self-care (01) ==
PROVIDERS: Emergency Provider Emergency Medicine
DX: T78.3XXA Angioneurotic edema, initial encounter (principal); X58.XXXA Exposure to other specified factors, initial encounter
CPT/HCPCS: 96372; 96374; 96375; 99284; J1100; J1200